=== PATIENT | male | born 1985 | race Caucasian/White ===

== ENCOUNTER 2018-07-02 23:45 | Emergency (ER) | payer BC, OTHER ==
--- NOTE | 2018-07-03 00:33 | EDM.PDOC ---
ED HPI GENERAL MEDICAL PROBLEM - General Chief Complaint: General Stated Complaint: Medical screening, detox Time Seen by Provider: 07/03/18 00:27 Source of Information: Reports: Patient, Police History Limitations: Reports: No Limitations - History of Present Illness INITIAL COMMENTS - FREE TEXT/NARRATIVE: Police bring him in for medical clearance before going to the [facility] half-way. Arrested for disturbing the peace. Is intoxicated. Argument with another individual. He does state he fell earlier today. Denies any pain. Denies headache, neck pain, chest pain, no SOB, no abdominal pain, no diarrhea, nausea , vomiting. No pain, burning or blood with urination. He is weepy while here and verbally aggressive with police officers. - Related Data Allergies Allergy/AdvReac Type Severity Reaction Status Date / Time No Known Allergies Allergy Verified 07/03/18 00:37 Home Meds: Home Meds Montelukast Sodium [Singulair] 10 mg PO DAILY 08/24/17 [History] QUEtiapine Fumarate [Quetiapine Fumarate] 200 mg PO DAILY 08/24/17 [History] Venlafaxine HCl [Venlafaxine ER] 125 mg PO DAILY 08/24/17 [History] lamoTRIgine [Lamotrigine] 75 mg PO DAILY 08/24/17 [History] Past Medical History Psychiatric History: Reports: Addiction, Depression ED ROS GENERAL - Review of Systems Review Of Systems: See Below Constitutional: Reports: No Symptoms HEENT: Reports: No Symptoms Respiratory: Reports: No Symptoms Cardiovascular: Reports: No Symptoms Endocrine: Reports: No Symptoms GI/Abdominal: Reports: No Symptoms : Reports: No Symptoms Musculoskeletal: Reports: No Symptoms Skin: Reports: No Symptoms Neurological: Reports: No Symptoms Psychiatric: Reports: No Symptoms Hematologic/Lymphatic: Reports: No Symptoms Immunologic: Reports: No Symptoms ED EXAM, GENERAL - Physical Exam Exam: See Below Exam Limited By: Intoxication General Appearance: Alert, WD/WN, No Apparent Distress Eye Exam: Bilateral Eye: EOMI, Normal Inspection Ears: Normal TMs Nose: Normal Inspection, Normal Mucosa, No Blood Throat/Mouth: Normal Inspection, Normal Lips, Normal Teeth, Normal Gums, Normal Oropharynx, Normal Voice, No Airway Compromise Head: Atraumatic, Normocephalic Neck: Normal Inspection, Supple, Non-Tender, Full Range of Motion Respiratory/Chest: No Respiratory Distress, Lungs Clear, Normal Breath Sounds, No Accessory Muscle Use, Chest Non-Tender Cardiovascular: Normal Peripheral Pulses, Regular Rate, Rhythm, No Edema, No Gallop, No JVD, No Murmur, No Rub Peripheral Pulses: 2+: Posterior Tibial (L), Posterior Tibial (R), Dorsalis Pedis (L), Dorsalis Pedis (R) GI/Abdominal: Normal Bowel Sounds, Soft, Non-Tender, No Organomegaly, No Distention, No Abnormal Bruit, No Mass Back Exam: Normal Inspection, Full Range of Motion, NT Extremities: Normal Inspection, Normal Range of Motion, Non-Tender, Normal Capillary Refill, No Pedal Edema Neurological: Alert, Oriented, CN II-XII Intact, Normal Cognition, Normal Gait, Normal Reflexes, No Motor/Sensory Deficits Psychiatric: Depressed Mood, Tearful Skin Exam: Other (chin scabbed up) Lymphatic: No Adenopathy Course - Vital Signs Last Recorded V/S: Last Vital Signs Temp 36.3 C 07/03/18 00:15 Pulse 108 H 07/03/18 00:15 Resp 18 07/03/18 00:15 BP 113/82 07/03/18 00:15 Pulse Ox 96 07/03/18 00:15 Departure - Departure Time of Disposition: 00:38 Disposition: Home, Self-Care 01 Condition: Good Clinical Impression: Alcohol intoxication - Discharge Information *PRESCRIPTION DRUG MONITORING PROGRAM REVIEWED*: Not Applicable *COPY OF PRESCRIPTION DRUG MONITORING REPORT IN PATIENT MESHA: Not Applicable Forms: ED Department Discharge Additional Instructions: Ok to proceed to half-way. Appears to be no medical risk of incarceration, however , please return to the ED if anything changes. - Problem List & Annotations (1) Alcohol intoxication SNOMED Code(s): 60574423 Code(s): F10.929 - ALCOHOL USE, UNSPECIFIED WITH INTOXICATION, UNSPECIFIED Status: Acute Priority: Low Qualifiers: Complication of substance-induced condition: uncomplicated Qualified Code(s ): F10.920 - Alcohol use, unspecified with intoxication, uncomplicated - Assessment/Plan Assessment:: alcohol intoxication Plan: Ok to proceed to half-way. Appears to be no medical risk of incarceration, however , please return to the ED if anything changes.
== END 2018-07-03 00:30 | disposition home or self-care (01) ==
LOC: VM.ED 23:45
DX: F10.129 Alcohol abuse with intoxication, unspecified (principal); Z79.899 Other long term (current) drug therapy
CPT/HCPCS: 99283

== ENCOUNTER 2021-01-06 00:35 | Emergency (ER) | payer MEDICAID, OTHER ==
[2021-01-06 01:41] LABS: CHLORIDE,CL 105 mmol/L (98-107); SODIUM,NA 142 mmol/L (136-145)
[2021-01-06 01:42] LABS: ACETAMINOPHEN 0 ug/ml (10-30); ANION GAP 18.4 mmol/L (5-15)
--- NOTE | 2021-01-06 01:53 | EDM.PDOC ---
ED HPI GENERAL MEDICAL PROBLEM - General Chief Complaint: Cardiovascular Problem Stated Complaint: overdose Time Seen by Provider: 01/06/21 00:35 Source of Information: Reports: Patient, EMS, EMS Notes Reviewed, RN, RN Notes Reviewed History Limitations: Reports: Altered Mental Status - History of Present Illness INITIAL COMMENTS - FREE TEXT/NARRATIVE: Patient is a 35-year-old male who presents to ER per [facility] ambulance service with altered mental status. Patient was found unconscious and naked. While in route to the hospital patient was only responsive to painful stimuli. 2 empty bottles next to the patient were found in his name, completely empty, Effexor and Seroquel. Upon arrival to the ER patient is babbling incoherently but maintaining airway. Patient states he was supposed to go to treatment next week for his mental health as well as alcohol abuse. Onset: Today, Sudden - Related Data Allergies Allergy/AdvReac Type Severity Reaction Status Date / Time No Known Allergies Allergy Verified 07/03/18 00:37 Home Meds: Home Meds Montelukast Sodium [Singulair] 10 mg PO DAILY 08/24/17 [History] QUEtiapine Fumarate [Quetiapine Fumarate] 200 mg PO DAILY 08/24/17 [History] Venlafaxine HCl [Venlafaxine ER] 125 mg PO DAILY 08/24/17 [History] lamoTRIgine [Lamotrigine] 75 mg PO DAILY 08/24/17 [History] Past Medical History Psychiatric History: Reports: Addiction, Depression ED ROS GENERAL - Review of Systems Review Of Systems: Comprehensive ROS is negative, except as noted in HPI. ED EXAM, GENERAL - Physical Exam Exam: See Below Exam Limited By: Altered Mental Status General Appearance: Lethargic, Obtunded Eye Exam: Bilateral Eye: EOMI, PERRL (pinpoint, sluggish) Ears: Normal External Exam, Hearing Grossly Normal Nose: Normal Inspection Throat/Mouth: Normal Inspection, Normal Lips, Normal Teeth, Normal Gums, Normal Oropharynx, Normal Voice, No Airway Compromise Head: Atraumatic, Normocephalic Neck: Normal Inspection, Supple, Non-Tender, Full Range of Motion Respiratory/Chest: No Respiratory Distress, Lungs Clear, Normal Breath Sounds, No Accessory Muscle Use, Chest Non-Tender Cardiovascular: Normal Peripheral Pulses, Regular Rate, Rhythm, No Edema, No Gallop, No JVD, No Murmur, No Rub Peripheral Pulses: 2+: Radial (L), Radial (R) GI/Abdominal: Normal Bowel Sounds, Soft, Non-Tender (Male) Exam: Deferred Rectal (Males) Exam: Deferred Back Exam: Normal Inspection, Full Range of Motion, NT Extremities: Normal Inspection, Normal Range of Motion, Non-Tender, Normal Capillary Refill, No Pedal Edema Neurological: Slow to Respond Psychiatric: Other Skin Exam: Warm, Dry, Intact, Normal Color, No Rash Lymphatic: No Adenopathy Course - Orders/Labs/Meds Orders: Active Orders 24 hr Category Date Time Status EKG Documentation Completion [RC] STAT Care 01/06/21 00:58 Active Head wo Cont [CT] Stat Exams 01/06/21 01:21 Taken DRUG SCREEN, URINE [URCHEM] Stat Lab 01/06/21 00:59 Ordered REFLEX LACTIC ACID YES OR NO [CHEM] Routine Lab 01/06/21 01:34 Received UA RFX DARLIN AND CULT IF INDIC [URIN] Stat Lab 01/06/21 00:59 Ordered Norepinephrine [Levophed] 4 mg Med 01/06/21 02:00 Active Dextrose 5% in Water 246 ml IV TITRATE Medication Orders Norepinephrine Bitartrate 4 mg (/ Dextrose/Water) 250 mls @ 7.5 mls/hr IV TITRATE HUMBLE; Protocol Labs: Laboratory Tests 01/06/21 01/06/21 01/06/21 Range/Units 00:56 00:56 00:56 WBC 9.6 (4.0-10.0) x10^3/uL RBC 5.43 (4.5-6.0) x10^6/uL Hgb 16.2 (14.0-18.0) g/dL Hct 48.1 (40.0-52.0) % MCV 88.6 (78.0-93.0) fL MCH 29.8 (26.0-32.0) pg MCHC 33.7 (32.0-36.0) g/dL RDW Coeff of Jacque 13.0 (10.0-15.0) % Plt Count 253 (130-400) x10^3/uL Immature Gran % (Auto) 1.80 H (0.00-0.43) % Neut % (Auto) 50.7 (50.0-80.0) % Lymph % (Auto) 40.3 (25.0-50.0) % Morrow % (Auto) 4.6 (2.0-11.0) % Eos % (Auto) 1.9 (0.0-4.0) % Baso % (Auto) 0.7 (0.2-1.2) % Neut # (Auto) 4.9 (1.8-7.7) x10^3/uL Lymph # (Auto) 3.9 (1.0-4.8) x10^3/uL Morrow # (Auto) 0.4 (0.0-0.8) x10^3/uL Eos # (Auto) 0.2 (0.0-0.5) x10^3/uL Baso # (Auto) 0.1 (0.0-0.2) x10^3/uL Immature Gran # (Auto) 0.17 H (0.00-0.07) x10^3/uL PT 9.2 L (9.9-12.5) SEC INR 0.8 L (2.0-3.5) Sodium 142 (136-145) mmol/L Potassium 3.4 L (3.5-5.1) mmol/L Chloride 105 (98-107) mmol/L Carbon Dioxide 22 (21-32) mmol/L Anion Gap 18.4 H (5-15) mmol/L BUN 7 (7-18) mg/dL Creatinine 1.3 (0.70-1.30) mg/dL Est Cr Clr Drug Dosing TNP Estimated GFR (MDRD) > 60 Glucose 119 H (70-99) mg/dL Lactic Acid (0.4-2.0) mmol/L Calcium 8.3 L (8.5-10.1) mg/dL Corrected Calcium 9.0 (8.5-10.1) mg/dL Total Bilirubin 0.2 (0.2-1.0) mg/dL AST 24 (15-37) U/L ALT 36 (16-63) U/L Alkaline Phosphatase 101 (46-116) U/L Troponin I High Sens 5 (<=76) ng/L Total Protein 6.4 (6.4-8.2) g/dL Albumin 3.1 L (3.4-5.0) g/dL Globulin 3.3 Albumin/Globulin Ratio 0.94 Salicylates (2.8-20(Therapeutic)) mg/dL Acetaminophen 0 L (10-30) ug/ml Ethyl Alcohol 201 H (0-3) mg/dL SARS CoV-2 RNA Rapid FEDERICO (NEGATIVE) 01/06/21 01/06/21 01/06/21 Range/Units 00:56 00:56 01:01 WBC (4.0-10.0) x10^3/uL RBC (4.5-6.0) x10^6/uL Hgb (14.0-18.0) g/dL Hct (40.0-52.0) % MCV (78.0-93.0) fL MCH (26.0-32.0) pg MCHC (32.0-36.0) g/dL RDW Coeff of Jacque (10.0-15.0) % Plt Count (130-400) x10^3/uL Immature Gran % (Auto) (0.00-0.43) % Neut % (Auto) (50.0-80.0) % Lymph % (Auto) (25.0-50.0) % Morrow % (Auto) (2.0-11.0) % Eos % (Auto) (0.0-4.0) % Baso % (Auto) (0.2-1.2) % Neut # (Auto) (1.8-7.7) x10^3/uL Lymph # (Auto) (1.0-4.8) x10^3/uL Morrow # (Auto) (0.0-0.8) x10^3/uL Eos # (Auto) (0.0-0.5) x10^3/uL Baso # (Auto) (0.0-0.2) x10^3/uL Immature Gran # (Auto) (0.00-0.07) x10^3/uL PT (9.9-12.5) SEC INR (2.0-3.5) Sodium (136-145) mmol/L Potassium (3.5-5.1) mmol/L Chloride (98-107) mmol/L Carbon Dioxide (21-32) mmol/L Anion Gap (5-15) mmol/L BUN (7-18) mg/dL Creatinine (0.70-1.30) mg/dL Est Cr Clr Drug Dosing Estimated GFR (MDRD) Glucose (70-99) mg/dL Lactic Acid 3.4 H* (0.4-2.0) mmol/L Calcium (8.5-10.1) mg/dL Corrected Calcium (8.5-10.1) mg/dL Total Bilirubin (0.2-1.0) mg/dL AST (15-37) U/L ALT (16-63) U/L Alkaline Phosphatase (46-116) U/L Troponin I High Sens (<=76) ng/L Total Protein (6.4-8.2) g/dL Albumin (3.4-5.0) g/dL Globulin Albumin/Globulin Ratio Salicylates 6.4 (2.8-20(Therapeutic)) mg/dL Acetaminophen (10-30) ug/ml Ethyl Alcohol (0-3) mg/dL SARS CoV-2 RNA Rapid FEDERICO Negative (NEGATIVE) Meds: Medications Generic Name Dose Route Start Last Admin Trade Name Freq PRN Reason Stop Dose Admin Norepinephrine Bitartrate 4 mg 250 mls @ 7.5 mls/hr 01/06/21 02:00 / Dextrose/Water IV TITRATE HUMBLE Protocol 2 MCG/MIN - Radiology Interpretation Free Text/Narrative:: CT Head: No acute findings See rad report - Re-Assessments/Exams Free Text/Narrative Re-Assessment/Exam: 01/06/21 02:34 DIscussed patient case with Dr. Lorenzo at [facility] who agreed to accept the patient for transfer to their facility. Patient will be transferred to [facility] in [place] via [facility]. Departure - Departure Time of Disposition: 02:24 Disposition: DC/Tfer to Acute Hospital 02 Reason for Transfer *Q: Other Condition: Serious Clinical Impression: Overdose Qualifiers: Encounter type: initial encounter Injury intent: undetermined intent Qualified Code(s): T50.904A - Poisoning by unspecified drugs, medicaments and biological substances, undetermined, initial encounter Alcohol intoxication Qualifiers: Complication of substance-induced condition: uncomplicated Qualified Code(s): F10.920 - Alcohol use, unspecified with intoxication, uncomplicated Referrals: PCP,None [Primary Care Provider] - Forms: ED Department Discharge, Interfacility Transfer EMTALA - My Orders Last 24 Hours: My Active Orders 01/06/21 00:58 EKG Documentation Completion [RC] STAT 01/06/21 00:59 DRUG SCREEN, URINE [URCHEM] Stat UA RFX DARLIN AND CULT IF INDIC [URIN] Stat 01/06/21 01:21 Head wo Cont [CT] Stat 01/06/21 01:34 REFLEX LACTIC ACID YES OR NO [CHEM] Routine 01/06/21 02:00 Norepinephrine [Levophed] 4 mg Dextrose 5% in Water 246 ml IV TITRATE - Assessment/Plan Last 24 Hours: My Active Orders 01/06/21 00:58 EKG Documentation Completion [RC] STAT 01/06/21 00:59 DRUG SCREEN, URINE [URCHEM] Stat UA RFX DARLIN AND CULT IF INDIC [URIN] Stat 01/06/21 01:21 Head wo Cont [CT] Stat 01/06/21 01:34 REFLEX LACTIC ACID YES OR NO [CHEM] Routine 01/06/21 02:00 Norepinephrine [Levophed] 4 mg Dextrose 5% in Water 246 ml IV TITRATE
[2021-01-06] MEDS ORDERED: Norepinephrine 4 MG in Dextrose 5% in Water 246 ML IV SCH ×2 (02:00)
--- NOTE | 2021-01-06 10:31 | CT ---
[id number] CT/CT Head WO IV EXAM: CT Head WO IV CLINICAL DATA: FOUND UNRESPONSIVE COMPARISON STUDY: None FINDINGS: No intracranial hemorrhage, extra-axial fluid collection, mass, or acute ischemia. Generalized parenchymal atrophy with scattered areas of nonspecific white matter disease, commonly seen as sequela of chronic microvascular ischemia. Soft tissues are unremarkable. Paranasal sinuses and mastoid air cells are clear. IMPRESSION: No acute intracranial findings. Manan June DO 01/06/21 1030 Thank you for allowing us to participate in the care of your patient.
== END 2021-01-06 03:52 | disposition short-term general hospital (02) ==
LOC: VM.ED 00:35
DX: T50.904A Poisoning by unspecified drugs, medicaments and biological substances, undetermined, initial encounter (principal); F10.129 Alcohol abuse with intoxication, unspecified; Z20.822 Contact with and (suspected) exposure to COVID-19; Y90.7 Blood alcohol level of 200-239 mg/100 ml
CPT/HCPCS: 36415; 70450; 80053; 80143; 80179; 80307; 83605; 84484; 85025; 85610; 93005; 96365; 96366; 99283; 99285-25; J7060; U0002

== ENCOUNTER 2023-03-26 18:44 | Emergency (ER) | payer MEDICAID ==
[2023-03-26] MEDS: Sodium Chloride 0.9% 1,000 ML IV ONE (18:54)
[2023-03-26 19:10] LABS: BASOPHILS ABSOLUTE AUTO 0.1 x10^3/uL (0.0-0.2); BASOPHILS PERCENT AUTO 0.4 % (0.2-1.2); EOSINOPHILS ABSOLUTE AUTO 0.1 x10^3/uL (0.0-0.5); EOSINOPHILS PERCENT AUTO 0.3 % (0.0-4.0); HEMATOCRIT 43.8 % (40.0-52.0); HEMOGLOBIN 14.9 g/dL (14.0-18.0); IMMATURE GRAN ABSOLUTE AUTO 0.11 x10^3/uL (0.00-0.07); LYMPHOCYTES ABSOLUTE AUTO 2.9 x10^3/uL (1.0-4.8); LYMPHOCYTES PERCENT AUTO 14.7 % (25.0-50.0); MEAN CORPUSCULAR HEMOGLOBIN 29.4 pg (26.0-32.0); MEAN CORPUSCULAR VOLUME 86.4 fL (78.0-93.0); MONOCYTES ABSOLUTE AUTO 1.1 x10^3/uL (0.0-0.8); MONOCYTES PERCENT AUTO 5.4 % (2.0-11.0); NEUTROPHILS ABSOLUTE AUTO 15.7 x10^3/uL (1.8-7.7); NEUTROPHILS PERCENT AUTO 78.6 % (50.0-80.0); PLATELET COUNT,PLT 198 x10^3/uL (130-400); RED BLOOD CELL COUNT 5.07 x10^6/uL (4.5-6.0)
[2023-03-26 19:16] LABS: WHITE BLOOD CELL COUNT,WBC 19.9 x10^3/uL (4.0-10.0)
[2023-03-26 19:32] LABS: ALANINE AMINOTRANSFERASE,ALT 42 U/L (16-63); ALBUMIN 3.3 g/dL (3.4-5.0); ALKALINE PHOSPHATASE 95 U/L (46-116); ANION GAP 12.1 mmol/L (5-15); ASPARTATE AMNIOTRANSFERASE,AST 21 U/L (15-37); BILIRUBIN TOTAL 0.4 mg/dL (0.2-1.0); BLOOD UREA NITROGEN,BUN 15 mg/dL (7-18); C-REACTIVE PROTEIN < 0.50 mg/dL (<=0.50); CALCIUM 8.6 mg/dL (8.5-10.1); CARBON DIOXIDE,CO2 27 mmol/L (21-32); CHLORIDE,CL 99 mmol/L (98-107); CREATININE 1.1 mg/dL (0.70-1.30); EST CRCL DRUG DOSING (CG) 111.79 mL/min; ESTIMATED GFR 88 mL/min (>=60); GLUCOSE RANDOM 145 mg/dL (70-99); POTASSIUM,K 4.1 mmol/L (3.5-5.1); PRO B-TYPE NATRIUR PEPT,BNPPRO 17 pg/mL (<=125); PROTEIN TOTAL,TP 6.6 g/dL (6.4-8.2); SODIUM,NA 134 mmol/L (136-145)
[2023-03-26 20:35] LABS: AMPHETAMINE, URINE NEGATIVE (NEGATIVE); BARBITUATES,URINE NEGATIVE (NEGATIVE); BENZODIAZEPINES,URINE NEGATIVE (NEGATIVE); BUPRENORPHINE,URINE NEGATIVE (NEGATIVE); COCAINE,URINE NEGATIVE (NEGATIVE); METHADONE,URINE NEGATIVE (NEGATIVE); METHAMPHETAMINE,URINE NEGATIVE (NEGATIVE); METHYLENEDIOXYMETHAMP,UR NEGATIVE (NEGATIVE); OPIATES,URINE NEGATIVE (NEGATIVE); OXYCODONE,URINE NEGATIVE (NEGATIVE); PHENCYCLIDINE,URINE NEGATIVE
[2023-03-26 20:36] LABS: APPEARANCE,URINE CLEAR (CLEAR); BILIRUBIN,URINE NEGATIVE (NEGATIVE); COLOR,URINE YELLOW (YELLOW); GLUCOSE,URINE NEGATIVE (NEGATIVE); KETONES,URINE NEGATIVE (NEGATIVE); LEUKOCYTE ESTERASE,URINE NEGATIVE (NEGATIVE); NITRITE,URINE NEGATIVE (NEGATIVE); OCCULT BLOOD,URINE TRACE-LYSED (NEGATIVE); PROTEIN,URINE TRACE mg/dL (NEGATIVE); UROBILINOGEN,URINE 0.2 EU/dL (0.2)
[2023-03-26 20:39] LABS: MARIJUANA,URINE POSITIVE (NEGATIVE)
[2023-03-26 20:42] LABS: BACTERIA,URINE RARE /HPF (NOT SEEN); HYALINE CASTS,URINE FEW; MUCUS,URINE FEW /LPF (NOT SEEN); RBC,URINE 0-5 /HPF (NOT SEEN); SQUAMOUS EPITHELIAL CELLS,UR OCCASIONAL /HPF (NOT SEEN); WBC,URINE 0-5 /HPF (NOT SEEN)
== END 2023-03-26 20:52 | disposition home or self-care (01) ==
LOC: MERGE 18:44 → VM.ED 18:44
DX: R55 Syncope and collapse (principal); F12.10 Cannabis abuse, uncomplicated; Z79.899 Other long term (current) drug therapy
CPT/HCPCS: 36415; 70450; 80053; 80305-QW; 81001; 83880; 84484; 85025; 86140; 96360; 99284-25; J7030

== ENCOUNTER 2023-12-31 15:12 | Emergency (ER) | payer SELFPAY ==
[2023-12-31] MEDS: levETIRAcetam 500 MG/5 ML SDV IVPUSH ONE (15:30)
[2023-12-31 15:45] LABS: BASOPHILS PERCENT AUTO 0.2 % (0.2-1.2); EOSINOPHILS ABSOLUTE AUTO 0.1 x10^3/uL (0.0-0.5); EOSINOPHILS PERCENT AUTO 0.5 % (0.0-4.0); HEMATOCRIT 46.7 % (40.0-52.0); HEMOGLOBIN 15.8 g/dL (14.0-18.0); IMMATURE GRAN ABSOLUTE AUTO 0.11 x10^3/uL (0.00-0.07); LYMPHOCYTES ABSOLUTE AUTO 2.6 x10^3/uL (1.0-4.8); LYMPHOCYTES PERCENT AUTO 23.6 % (25.0-50.0); MEAN CORPUSCULAR HEMOGLOBIN 29.1 pg (26.0-32.0); MEAN CORPUSCULAR HGB CONC 33.8 g/dL (32.0-36.0); MONOCYTES ABSOLUTE AUTO 0.7 x10^3/uL (0.0-0.8); NEUTROPHILS ABSOLUTE AUTO 7.5 x10^3/uL (1.8-7.7); NEUTROPHILS PERCENT AUTO 68.7 % (50.0-80.0); PLATELET COUNT,PLT 208 x10^3/uL (130-400); RED BLOOD CELL COUNT 5.43 x10^6/uL (4.5-6.0)
[2023-12-31 16:18] LABS: A/G RATIO 0.82; ALANINE AMINOTRANSFERASE,ALT 77 U/L (16-63); ALBUMIN 3.1 g/dL (3.4-5.0); ALKALINE PHOSPHATASE 96 U/L (46-116); ASPARTATE AMNIOTRANSFERASE,AST 114 U/L (15-37); BILIRUBIN TOTAL 0.3 mg/dL (0.2-1.0); BLOOD UREA NITROGEN,BUN 10 mg/dL (7-18); C-REACTIVE PROTEIN 0.56 mg/dL (<=0.50); CARBON DIOXIDE,CO2 26 mmol/L (21-32); CHLORIDE,CL 104 mmol/L (98-107); CREATININE 1.1 mg/dL (0.70-1.30); EST CRCL DRUG DOSING (CG) 110.69 mL/min; ETHANOL BLOOD MEDICAL 146 mg/dL (0-3); GLUCOSE RANDOM 122 mg/dL (70-99); MAGNESIUM 2.1 mg/dL (1.8-2.4); POTASSIUM,K 3.9 mmol/L (3.5-5.1); PROTEIN TOTAL,TP 6.9 g/dL (6.4-8.2); SODIUM,NA 142 mmol/L (136-145); TSH ULTRASENSITIVE 3.359 uIU/mL (0.358-3.74)
[2023-12-31 16:25] LABS: ACETAMINOPHEN 0 ug/ml (10-30); ANION GAP 15.9 mmol/L (5-15); ESTIMATED GFR 88 mL/min (>=60)
== END 2023-12-31 15:59 | disposition left against medical advice (07) ==
LOC: VM.ED 15:12
DX: F10.129 Alcohol abuse with intoxication, unspecified (principal); F17.210 Nicotine dependence, cigarettes, uncomplicated; Z79.899 Other long term (current) drug therapy
CPT/HCPCS: 36415; 80053; 80143; 80179; 80307; 83735; 84443; 84484; 85025; 86140; 96374; 99284; J1953